=== PATIENT | female | born 1950 | race Caucasian/White ===

== ENCOUNTER → 2017-10-16 | Outpatient (CLI) | payer OTHER | END | disposition home or self-care (01) | LOC: KCIC MRI 12:43 | DX: M51.36 Other intervertebral disc degeneration, lumbar region (principal); M48.061 Spinal stenosis, lumbar region without neurogenic claudication | CPT/HCPCS: 72148 ==

== ENCOUNTER → 2017-10-30 | Outpatient (CLI) | payer OTHER | END | disposition home or self-care (01) | LOC: KCIC MAMMO 12:31 | DX: Z12.31 Encounter for screening mammogram for malignant neoplasm of breast (principal) | CPT/HCPCS: 77063; 77067 ==

== ENCOUNTER → 2017-11-13 | Outpatient (CLI) | payer OTHER ==
[~2017-11-13] MED LIST: IOHEXOL 180 MG/ML 10 ML VIAL.; methylPREDNISolone ACETATE 40 MG/ML VIAL.; methylPREDNISolone ACETATE 80 MG/ML VIAL.
== END | disposition home or self-care (01) ==
LOC: PNCL 08:34
DX: M51.16 Intervertebral disc disorders with radiculopathy, lumbar region (principal); M48.061 Spinal stenosis, lumbar region without neurogenic claudication; Z88.6 Allergy status to analgesic agent; Z88.8 Allergy status to other drugs, medicaments and biological substances; Z91.018 Allergy to other foods
CPT/HCPCS: 62323; J1030; J1040

== ENCOUNTER → 2017-12-04 | Outpatient (CLI) | payer OTHER | END | disposition home or self-care (01) | LOC: PNCL 07:31 | DX: M51.16 Intervertebral disc disorders with radiculopathy, lumbar region (principal); M48.061 Spinal stenosis, lumbar region without neurogenic claudication; Z88.8 Allergy status to other drugs, medicaments and biological substances | CPT/HCPCS: 62323; J1030; J1040; Q9965 ==

== ENCOUNTER → 2018-03-26 | Outpatient (CLI) | payer OTHER, MEDICARE | END | disposition home or self-care (01) | LOC: KCIC US 10:54 | DX: R22.2 Localized swelling, mass and lump, trunk (principal) | CPT/HCPCS: 76881 ==

== ENCOUNTER → 2018-04-02 | Outpatient (CLI) | payer OTHER, MEDICARE ==
[2018-04-02 14:41] LABS: ANION GAP 9 (6-14); BLOOD UREA NITROGEN 19 mg/dL (7-20); CALCIUM 9.4 mg/dL (8.5-10.1); CARBON DIOXIDE 28 mmol/L (21-32); CHLORIDE 104 mmol/L (98-107); CREATININE 0.9 mg/dL (0.6-1.0); GFR 62.3; GLUCOSE 92 mg/dL (70-99); POTASSIUM 4.3 mmol/L (3.5-5.1); SODIUM 141 mmol/L (136-145)
== END | disposition home or self-care (01) ==
LOC: LAB 14:14
DX: I11.0 Hypertensive heart disease with heart failure (principal); I50.20 Unspecified systolic (congestive) heart failure; E78.5 Hyperlipidemia, unspecified; E66.9 Obesity, unspecified; K21.9 Gastro-esophageal reflux disease without esophagitis
CPT/HCPCS: 36415; 80048

== ENCOUNTER → 2018-04-09 | Outpatient (CLI) | payer OTHER, MEDICARE | END | disposition home or self-care (01) | LOC: ECHO 08:37 | DX: I50.20 Unspecified systolic (congestive) heart failure (principal); I34.0 Nonrheumatic mitral (valve) insufficiency | CPT/HCPCS: 93306; C8924 ==

== ENCOUNTER → 2018-06-18 | Outpatient (CLI) | payer OTHER ==
[2018-04-20 10:48] VITALS: BP 104/52
[~2018-06-18] MED LIST changes: +AMLO2.5T3 PO; +ASPI-482 PO; +CA C1TAB62 PO; +CARV6.25 PO; +FURO-69 PO; +FURO20TA3 PO; -IOHEXOL 180 MG/ML 10 ML VIAL.; +LISI-338 PO; +LISI10TA2 PO; +METO-239 PO; +OMEP20TA63 PO; +POTA10TA12 PO; +TRAM-48 PO; -methylPREDNISolone ACETATE 40 MG/ML VIAL.; -methylPREDNISolone ACETATE 80 MG/ML VIAL.
[2018-06-18 15:31] LABS: CALCIUM 9.5 mg/dL (8.5-10.1); CREATININE 0.8 mg/dL (0.6-1.0); GFR 71.1; POTASSIUM 4.1 mmol/L (3.5-5.1)
== END | disposition home or self-care (01) ==
LOC: LAB 15:00
PROVIDERS: ATTEND Internal Medicine Cardiovascular Disease
DX: I42.0 Dilated cardiomyopathy (principal); I11.0 Hypertensive heart disease with heart failure; I50.22 Chronic systolic (congestive) heart failure; I25.10 Atherosclerotic heart disease of native coronary artery without angina pectoris; K21.9 Gastro-esophageal reflux disease without esophagitis; Z96.652 Presence of left artificial knee joint; Z90.49 Acquired absence of other specified parts of digestive tract; Z90.710 Acquired absence of both cervix and uterus; Z88.5 Allergy status to narcotic agent; Z88.6 Allergy status to analgesic agent; Z91.018 Allergy to other foods
CPT/HCPCS: 36415; 80048

== ENCOUNTER → 2018-06-24 | Outpatient (CLI) | payer OTHER ==
[2018-04-20 10:48] VITALS: BP 104/52
[~2018-06-24] MED LIST changes: +CRESTOR5 MG PO; +IOHEXOL 180 MG/ML 10 ML VIAL. ONE; +LIDOCAINE 2% PF 2ML VIAL. ONE; +RANI150T21 PO; +SACU1TAB PO; +SPIR25TA5 PO; +methylPREDNISolone ACETATE 40 MG/ML VIAL. ONE; +methylPREDNISolone ACETATE 80 MG/ML VIAL. ONE
--- NOTE | 2018-06-24 19:26 | PAIN ---
DATE OF SERVICE: 06/24/2018 DIAGNOSES: Lumbar radiculopathy with lumbar spinal stenosis, lumbar degenerative disk disease. HISTORY OF PRESENT ILLNESS: The patient is a 68-year-old female who returns for followup status post lumbar epidural steroid injection x 3, last seen 12/04/2017. The patient did well with about 50% improvement for about a week and a half and reports the pain is getting worse now. She has had some cardiac workup. She had a pacemaker defibrillator placed about 2 months ago with pain returning in her back, mainly on the bilateral aspect of the low back and right leg. The patient reports it is radiating to the right lateral anterior thigh, medial lower leg as well as across the low back bilaterally. The patient reports it is a 10 on a scale of 10 at its worst, average and at its least and is a 10 today. The patient reports it is aching, constant, becoming more severe, worse with walking, standing, change in positions, also waking her from sleep about every 3 hours or so. The patient reports no new motor or sensory deficits, no new bowel or bladder incontinence. Reports she did do much better after the injections, was not as significant relief as she would like. It was better than it is now. The patient reports no new changes, no new bowel or bladder incontinence or other complaints. PHYSICAL EXAMINATION: VITAL SIGNS: The patient's blood pressure is 139/75, pulse 73, respirations are 16, temperature 97.5 degrees Fahrenheit, height is 5 feet 7 inches, weight is 203 pounds. GENERAL: The patient is awake, alert, oriented, appropriate, very pleasant demeanor. HEENT: Head shows normocephalic, atraumatic. Extraocular muscles are intact and symmetrical. Oral cavity, mucous membranes are moist and pink. Dentition is intact. NECK: Shows anterior throat supple without palpable lymphadenopathy noted. Swallow reflex is symmetrical. CHEST: Shows normal on inspection. Breath sounds clear to auscultation bilaterally. HEART: S1, S2 clear. No murmurs auscultated. ABDOMEN: Soft, nontender, nondistended. No palpable organomegaly is noted. No rebound or guarding demonstrated. BACK: Shows spine grossly in the midline. Normal appearing thoracic kyphosis and lumbar lordotic curvature. Lumbar paraspinous musculature shows symmetrical on inspection and palpation shows some mild tenderness diffusely throughout the upper, middle and lower distribution of paraspinous muscles bilaterally, but only diffusely without radiation. No trigger points, no asymmetry, no tenderness over the spinous processes, sacrum or sacroiliac regions. The patient has good rotational motion of lumbar spine, both laterally as well as extension and flexion without significant difficulty. EXTREMITIES: Lower extremities show deep tendon reflex is 1+ in the patella and tendo calcaneus tendons are equal. Motor exam is strong 5/5 in dorsiflexion and extension, quadriceps and hamstring flexion is symmetrical. Peripheral pulses are 1+ posterior tibial. No peripheral edema is noted. Options were discussed with the patient. The patient's old chart was reviewed as her current medication regimen and updated. Current review of systems is updated today as well. We will proceed with a lumbar epidural steroid injection, today is the first in this series with fluoroscopic guidance. Risks were again discussed including, but not limited to bleeding, infection, possibility of epidural hematoma and subsequent neurological compromise, dural puncture headache, spinal cord and/or nerve damage, side effects of steroid medication and poor results regarding pain control. The patient understands and wished to proceed. The patient will return to clinic in approximately 2 weeks for followup, was counseled on return appointment, activity level and side effects to be aware of. DIAGNOSES: Lumbar radiculopathy with lumbar spinal stenosis, lumbar degenerative disk disease. PROCEDURES: Lumbar epidural steroid injection, translaminar approach at the L4-L5 level using C-arm fluoroscopic guidance under sterile prep and drape using local anesthetic. MEDICATION INJECTED: A total of 120 mg Depo-Medrol plus 10 mL of preservative-free normal saline and 2 mL of Isovue for contrast. CONDITION AT DISCHARGE: Stable. The patient tolerated procedure well, had no complications. LUBA SMITH MD DR: YANNI/fabiola JOB#: [id number] / [id number]
== END | disposition home or self-care (01) ==
LOC: PNCL 07:23
PROVIDERS: ATTEND Anesthesiology
DX: M51.16 Intervertebral disc disorders with radiculopathy, lumbar region (principal); M48.061 Spinal stenosis, lumbar region without neurogenic claudication; Z88.6 Allergy status to analgesic agent; Z88.5 Allergy status to narcotic agent; Z88.8 Allergy status to other drugs, medicaments and biological substances; Z91.018 Allergy to other foods
CPT/HCPCS: 62323; J1030; J1040; J2001; Q9965

== ENCOUNTER → 2018-07-12 | Outpatient (CLI) | payer OTHER ==
[2018-04-20 10:48] VITALS: BP 104/52
--- NOTE | 2018-07-12 08:48 | PAIN ---
DATE OF SERVICE: 07/12/2018 PROGRESS NOTE FOR PAIN CLINIC DIAGNOSES: Lumbar radiculopathy with lumbar spinal stenosis and lumbar degenerative disk disease. HISTORY OF PRESENT ILLNESS: The patient is a 68-year-old female who returns for followup status post lumbar epidural steroid injection x 1. The patient did very well, reports about a 75% improvement initially, now down to about 50% improvement but still doing much better. The patient reports the pain in her legs is much better. She has pain across the back now but was increasing in the right lower extremity more than the left with the leg is doing much better but the back still has some significant pain. The patient reports it is a 9 on a scale 10 at its worst, 9 on average, 8 at its least and is a constant and severe pain, is aching and reports it is an 8 today. The patient reports no new motor or sensory deficit. She was increasing her activity with greater ease and comfort, walking and doing activities around the house, so bending forward and leaning is causing significant pain with standing and leaning as well. The patient reports it awakens her from sleep at night but only about every 4-5 hours and she can usually reposition and get back to sleep. PHYSICAL EXAMINATION: VITAL SIGNS: The patient's blood pressure is 130/60, pulse 67, respirations are 20, temperature 97.6 degrees Fahrenheit and weight is 205 pounds. GENERAL: The patient is awake, alert, oriented, appropriate and very pleasant demeanor. HEENT: Head shows normocephalic and atraumatic. Extraocular movements intact and symmetrical. Oral cavity, mucous membranes are moist and pink. Dentition is intact. NECK: Shows anterior throat supple without palpable lymphadenopathy noted. Swallow reflex is symmetrical. CHEST: Shows normal on inspection. Breath sounds clear to auscultation bilaterally. HEART: Shows S1 and S2 clear. No murmurs auscultated. ABDOMEN: Soft, nontender and nondistended. No palpable organomegaly is noted. No rebound or guarding demonstrated. BACK: Shows spine grossly in the midline. Normal appearing thoracic kyphosis and lumbar lordotic curvature. Lumbar paraspinous muscle shows symmetrical on inspection and palpation shows some moderate tenderness but only diffusely in the low lumbar distribution without radiation. The patient has good rotational motion both laterally as well as extension and flexion without significant difficulty as well. EXTREMITIES: The patient's lower extremities show deep tendon reflexes at 1+ in the patellar and tendo-calcaneus tendons. Motor exam is strong with 5/5 dorsiflexion, extension, quadriceps and hamstring flexion and symmetrical. Peripheral pulses are 1+ posterior tibia. No peripheral edema is noted bilaterally. Options were discussed with the patient. The patient's old chart was reviewed as well as her current medication regimen updated. Current review of systems updated today as well. We will proceed with a second in the series of lumbar epidural steroid injection today with fluoroscopic guidance. Risks were again discussed including, but not limited to bleeding, infection, possibility of epidural hematoma, subsequent neurologic compromise, dural puncture, headaches, spinal cord and/or nerve damage, side effects of steroid medication and poor results regarding pain control. The patient understands and wished to proceed. The patient will return to the clinic in approximately 2 weeks for followup, was counseled as to return appointment, activity level and side effects to be aware of. DIAGNOSES: Lumbar radiculopathy with lumbar spinal stenosis and lumbar degenerative disk disease. PROCEDURE: Lumbar epidural steroid injection, translaminar approach, L4-L5 level using C-arm fluoroscopic guidance under sterile prep and drape using local anesthetic. MEDICATION INJECTED: A total of 120 mg Depo-Medrol plus 10 mL of preservative-free normal saline and 2 mL of Isovue for contrast. CONDITION AT DISCHARGE: Stable. The patient tolerated the procedure well and had no complications. LUBA SMITH MD DR: YANNI/fabiola JOB#: [id number] / [id number]
== END | disposition home or self-care (01) ==
LOC: PNCL 07:33
PROVIDERS: ATTEND Anesthesiology
DX: M51.16 Intervertebral disc disorders with radiculopathy, lumbar region (principal); M48.061 Spinal stenosis, lumbar region without neurogenic claudication; Z88.5 Allergy status to narcotic agent; Z88.6 Allergy status to analgesic agent; Z88.8 Allergy status to other drugs, medicaments and biological substances; Z91.018 Allergy to other foods
CPT/HCPCS: 62323; J1030; J1040; J2001; Q9965

== ENCOUNTER → 2019-08-25 | Outpatient (CLI) | payer MEDICARE ==
[2018-04-20 10:48] VITALS: BP 104/52
[~2019-08-25] MED LIST changes: -AMLO2.5T3 PO; +AMLO2.5T5 PO; -IOHEXOL 180 MG/ML 10 ML VIAL. ONE; -LIDOCAINE 2% PF 2ML VIAL. ONE; +RANI-376 PO; -RANI150T21 PO; -methylPREDNISolone ACETATE 40 MG/ML VIAL. ONE; -methylPREDNISolone ACETATE 80 MG/ML VIAL. ONE
[2019-08-25 10:42] LABS: ALBUMIN 3.9 g/dL (3.4-5.0); ALBUMIN/GLOBULIN RATIO 1.1 (1.0-1.7); BILIRUBIN,URINE NEGATIVE (NEG); CALCIUM 9.4 mg/dL (8.5-10.1); CLARITY,URINE CLEAR; COLOR,URINE YELLOW; CREATININE 0.8 mg/dL (0.6-1.0); GFR 70.9; NITRITE,URINE NEGATIVE (NEG); PH,URINE 6.5; POTASSIUM 4.5 mmol/L (3.5-5.1); PROTEIN,URINE NEGATIVE (NEG-TRACE); TOTAL BILIRUBIN 0.8 mg/dL (0.2-1.0); TOTAL PROTEIN 7.5 g/dL (6.4-8.2); UROBILINOGEN,URINE 0.2 mg/dL (0.2 mg/dL)
[2019-08-25 10:45] LABS: BASO % 1 % (0-3); EOS # 0.1 x10^3/uL (0.0-0.7); EOS % 1 % (0-3); HEMATOCRIT 37.3 % (36.0-47.0); HEMOGLOBIN 12.5 g/dL (12.0-15.5); LYMPH # 1.6 x10^3/uL (1.0-4.8); LYMPH % 29 % (24-48); MEAN CORPUSCULAR HEMOGLOBIN 29 pg (25-35); MEAN CORPUSCULAR HGB CONC 34 g/dL (31-37); MEAN CORPUSCULAR VOLUME 87 fL (79-100); MONO # 0.3 x10^3/uL (0.0-1.1); MONO % 7 % (0-9); NEUT # 3.3 x10^3/uL (1.8-7.7); NEUT % 62 % (31-73); PLATELET COUNT 244 x10^3/uL (140-400); RED CELL DISTRIBUTION WIDTH 13.4 % (11.5-14.5); WHITE BLOOD COUNT 5.3 x10^3/uL (4.0-11.0)
[2019-08-25 11:45] LABS: BACTERIA,URINE 0 /HPF (0-FEW); RBC,URINE OCC /HPF (0-2); SQUAMOUS EPITHELIAL CELL,UR MANY /LPF; WBC,URINE 0 /HPF (0-4)
== END | disposition home or self-care (01) ==
LOC: LAB 10:03
PROVIDERS: ATTEND Orthopaedic Surgery Adult Reconstructive Orthopaedic Surgery
DX: Z01.818 Encounter for other preprocedural examination (principal); M17.11 Unilateral primary osteoarthritis, right knee
CPT/HCPCS: 36415; 80053; 81001; 85025